=== PATIENT | male | born 1990 | race Caucasian/White ===

== ENCOUNTER 2017-09-05 20:29 | Emergency (ER) | payer BC, OTHER, SELFPAY ==
[2017-09-05] MEDS ORDERED: Adacel (T-DAP) 0.5 ML VIAL ONE (20:40)
== END 2017-09-05 20:47 | disposition home or self-care (01) ==
LOC: ERS 20:29
DX: S00.01XA Abrasion of scalp, initial encounter (principal); F17.210 Nicotine dependence, cigarettes, uncomplicated; Z79.899 Other long term (current) drug therapy; Z23 Encounter for immunization
CPT/HCPCS: 90471; 90715

== ENCOUNTER 2017-11-07 11:16 | Emergency (ER) | payer OTHER, SELFPAY ==
[2017-11-07] MEDS ORDERED: Bacitracin Zinc 1 Packet ONE (12:36)
== END 2017-11-07 12:51 | disposition home or self-care (01) ==
LOC: ERS 11:16
DX: S01.01XA Laceration without foreign body of scalp, initial encounter (principal); F17.210 Nicotine dependence, cigarettes, uncomplicated; Z79.899 Other long term (current) drug therapy; W27.8XXA Contact with other nonpowered hand tool, initial encounter; Y92.69 Other specified industrial and construction area as the place of occurrence of the external cause; Y99.0 Civilian activity done for income or pay
CPT/HCPCS: 12001